=== PATIENT | female | born 1950 | race African-American/Black ===

== ENCOUNTER 2017-06-03 10:38 | Outpatient (CLI) | payer MEDICARE, BC | END 2017-06-03 10:39 | disposition home or self-care (01) | LOC: BICRAD 10:38 | PROVIDERS: ATTEND Internal Medicine | DX: R05 Cough (principal) | CPT/HCPCS: 71046 ==

== ENCOUNTER 2017-06-28 14:51 | Inpatient (IN) | payer MEDICARE, BC ==
[2017-06-28] MEDS ORDERED: Dexamethasone 4 mg/ml Vial ONE (15:33)
--- NOTE | 2017-06-28 15:55 | RAD ---
CHEST PA AND LATERAL: 06/28/17 HISTORY: 66-year-old female with history of cough and fever. COMPARISON: 11/08/15 There is prominent rotation to the left. Heart size is within normal limits. No confluent pneumonia, overt edema, or pleural effusion. IMPRESSION: Rotation to the left. Mild stranding in the upper lung zones, stable. thoracic spine disc osteophytos is, stable. No confluent pneumonia, overt edema or pleural effusion. POS: [facility]
[2017-06-28 17:31] LABS: Actual Bicarbonate (HCO3a) 29.6 mEq/L (22-26); Base Excess (BEa) 4.8 mEq/L (0 (+/-) 2.5); CO2 Tension 44.1 mmHg (35.0-45.0); Hemoglobin (Hb) 12.5 g/dL (12.0-16.0); O2 Tension (PaO2) 63.6 mmHg (80.0-100.0); pH, Arterial 7.44 (7.35-7.45)
[2017-06-28 17:32] LABS: ALV-art Gradient 80.915 (0-20); Analyzer IN Cardio ER; Calcium, Ionized 1.2 mmol/L (1.12-1.30); Puncture Site RRA
[2017-06-28 17:56] LABS: #Lymphocytes 0.5 thou/uL (1.20-3.40); #Monocytes 0.2 thou/uL (0.11-0.59); #Neutrophils 2.8 thou/uL (1.40-6.50); %Basophils 0.1 % (0.0-1.0); %Eosinophils 0.3 % (0.0-10.0); %Lymphocytes 14.7 % (21.0-51.0); %Monocytes 6.5 % (0.0-10.0); %Neutrophils 78.4 % (42.0-75.0); Hemoglobin 12.8 g/dL (12.0-16.0); Mean Corpuscular HGB CONC 32.2 g/dL (32.0-36.0); Mean Corpuscular Hemoglobin 30.9 pg (27.0-31.0); Mean Corpuscular Volume 95.8 fl (81.0-99.0); Mean Platelet Volume 7.8 fL (7.4-10.4); Platelet Count 184 thou/uL (130-400); RBC Distribution Width 13.1 % (11.5-14.5); Red Blood Cell (RBC) Count 4.16 mill/uL (4.20-5.40); White Blood Cell (WBC) Count 3.6 thou/uL (4.8-10.8)
[2017-06-28] MEDS ORDERED: Oseltamivir 75 MG CAP PO SCH (18:00)
[2017-06-28 18:16] LABS: ALT (SGPT) 16 U/L (8-55); AST (SGOT) 21 U/L (5-34); Albumin 4.3 g/dL (3.4-4.8); Alkaline Phosphatase 98 U/L (40-150); Anion Gap 12 mmol/L (10-20); BUN (Urea Nitrogen) 12 mg/dL (9.8-20.1); Bilirubin, Total 0.3 mg/dL (0.2-1.2); CK (CPK) 110 U/L (29-168); Calc. Creatinine Clearance 0 mL/min (70-130); Calcium 9.3 mg/dL (7.8-10.44); Carbon Dioxide 30 mmol/L (23-31); Chloride 103 mmol/L (98-107); Estimated GFR-MDRD 85; Glucose 141 mg/dL (80-115); Potassium 3.8 mmol/L (3.5-5.1); Protein, Total 7.3 g/dL (6.0-8.3); Sodium 141 mmol/L (136-145)
[2017-06-28 18:20] LABS: CKMB 0.4 ng/mL (0-6.6)
--- NOTE | 2017-06-28 19:52 | HP ---
DATE OF ADMISSION: 06/28/2017 CHIEF COMPLAINT: Worsening shortness of breath, fever, cough, myalgias and malaise. PRIMARY CARE PHYSICIAN: Dr. Almeida. HISTORY OF PRESENTING ILLNESS: Ms. Raya is a very pleasant 66-year-old -[place] female wit h past medical history of COPD, hypertension, and dyslipidemia who presented to the emergency room wi th above-mentioned complaints. History is mainly obtained by the patient herself. Electronic medica l records have been reviewed. Case has been discussed with the admitting ER physician. According to Ms. Raya, she has been feeling fine up until yesterday. She started to have significa nt amount of cough which was productive of whitish phlegm associated later with fever. She also has been feeling very poorly with generalized myalgias. She started to feel worse over the course of the next 24 hours and developed shortness of breath which has been worsening since morning. She present ed to the emergency room with these symptoms. 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 She denies any other symptoms at this time. She does endorse some chest discomfort along with these symptoms, but denies any palpitations, orthopnea, PND or swelling of the legs. She denies vomiting or diarrhea, but does endorse significant nausea and poor appetite. She d enies any dysuria. Upon presentation to the emergency room, she was significantly wheezing. She appears she was found to be febrile to 100.8. Her ABG showed hypoxemia with pO2 of 63. Her cardiac enzymes are in the indet erminate range. Influenza swab was done and was positive for influenza B. Her chest x-ray did not h ave any evidence to suggest infectious process. She was given multiple nebulizers along with Decadro n and Tamiflu and is now being admitted for acute hypoxic respiratory failure secondary to COPD exace rbation and influenza. PAST MEDICAL HISTORY: 1. Hypertension. 2. Dyslipidemia. 3. COPD. PAST SURGICAL HISTORY: 1. Hysterectomy. 2. Tubal ligation. 3. Cholecystectomy. PSYCHIATRIC HISTORY: No anxiety and no depression. 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 No history of drug, tobacco or alcohol a buse. FAMILY HISTORY: Significant for diabetes in her mother. Her mother and one sister have breast cance r. One of her brothers has had pancreatic cancer and father also had pancreatic cancer. ALLERGIES: No known medication allergies. CURRENT MEDICATIONS: Hydrochlorothiazide 12.5 mg daily, enalapril 20 mg daily, Crestor 5 mg daily, a spirin 81 mg daily, diltiazem 180 mg daily, and multiple eyedrops which she does not remember. REVIEW OF SYSTEMS: The following complete review of systems was negative, unless otherwise mentioned in the HPI or below: Constitutional: Weight loss or gain, ability to conduct usual activities. Skin: Rash, itching. Eyes: Double vision, pain. ENT/Mouth: Nose bleeding, neck stiffness, pain, tenderness. Cardiovascular: Palpitations, dyspnea on exertion, orthopnea. Respiratory: Shortness of breath, wheezing, cough, hemoptysis, fever or night sweats. Gastrointestinal: Poor appetite, abdominal pain, heartburn, nausea, vomiting, constipation, or diarr hea. Genitourinary: Urgency, frequency, dysuria, nocturia. Musculoskeletal: Pain, swelling. Neurologic/Psychiatric: Anxiety, depression. Allergy/Immunologic: Skin rash, bleeding tendency. It is negative except for those mentioned in the history and physical. LABORATORY DATA AND IMAGING DATA: On laboratory examination, her CBC is showing neutrophils at 78% w ith low WBCs at 3.6. ABG shows pH of 7.4, pCO2 of 44, pO2 of 63. Serum chemistries unremarkable exc ept for blood sugar of 141. Her CK-MB is normal at 0.4, normal BNP of 67. Cardiac enzymes, troponin 0.030. Chest x-ray by my review has no evidence to suggest pleural effusion, edema or infiltrate. PHYSICAL EXAMINATION: VITAL SIGNS: Upon presentation include blood pressure 161/72, pulse of 75, respirations 18, saturati ng 97% on room air, temperature 100.8. GENERAL: She appears very uncomfortable, tired and weak looking, and coughing. She is otherwise vero ke, alert, oriented x3. HEENT: Mucous membrane is slightly dry. No oropharyngeal exudate or erythema. Head is normocephali c, atraumatic. Pupils are equal, reactive to light and accommodation. Extraocular movements are int act. NECK: Supple without any lymphadenopathy, JVD or bruit. CHEST: Evaluation showed diffuse wheezing bilaterally without any crackles. Rate and rhythm is regu lar without any murmurs, rubs or gallops. ABDOMEN: Obese, soft, nontender, nondistended with positive bowel sounds. EXTREMITIES: Free of any cyanosis, clubbing, or edema. NEUROLOGIC: Examination is nonfocal. SKIN: Free of any rashes or bruises. PSYCHIATRIC: Normal affect. IMPRESSION AND PLAN: 1. Acute hypoxic respiratory failure secondary to chronic obstructive pulmonary disease exacerbation along with influenza. The patient will be admitted to the medical floor and we will start her on ox ygen supplementation along with nebulizers scheduled as well as needed basis. We will also add inhal ed steroids as well as continue high dose steroids for now. Add empiric antibiotics for chronic obst ructive pulmonary disease exacerbation especially in the light of influenza. Continue with Tamiflu t wice a day for now. We will also request consultation with Pulmonary Medicine in the morning. She f ollows up at [facility]. We will continue symptomatic and supportive care as mesfin vidal. 2. Hypertension. We will restart her home medications. Her blood pressure is slightly on the highe r side at this time. We will add p.r.n. antihypertensives as well. 3. History of dyslipidemia. We will restart her Crestor. She will follow up with her primary care physician as an outpatient. 4. Indeterminate troponin. This is likely secondary to demand ischemia from influenzae and acute hy poxia due to chronic obstructive pulmonary disease exacerbation. The patient does not endorse any hi story of cardiac disease. We will continue her aspirin, statin as well as RICK inhibitor along with r est of her home medications at this time. We will continue to trend serial cardiac enzymes. 5. Influenza B. The patient has received first dose of Tamiflu in the emergency room, and we will c ontinue twice a day for a total of 10 doses for now. Start her on gentle intravenous fluids to maint ain hydration. 6. Deep venous thrombosis and gastrointestinal prophylaxis. P.r.n. medication orders. DISPOSITION: Ms. Raya is being admitted to the hospital for acute hypoxic respiratory failure due to COPD exacerbation and influenza. Her estimated length of stay is at least 2 to 3 midnights given the severity of her presentation and hypoxia. Further management will depend upon her clinical cours e.
[2017-06-28] MEDS ORDERED: Ondansetron ODT 4 MG TAB SL PRN (21:04)
[2017-06-28] MEDS ORDERED: Acetaminophen 325 MG TAB PO PRN (21:04)
[2017-06-28] MEDS ORDERED: Ondansetron HCl/PF 4 MG/2 ML Vial IVP PRN ×2 (21:04→21:07)
[2017-06-28] MEDS ORDERED: Diabetic Tussin 200 MG/10 ML UDCUP PO PRN (21:07)
[2017-06-28] MEDS ORDERED: cloNIDine 0.1 MG TAB PO PRN (21:07)
[2017-06-28] MEDS ORDERED: Benzonatate 100 MG CAP PO PRN (21:07)
[2017-06-28] MEDS ORDERED: Loratadine 10 MG TAB PO PRN (21:07)
[2017-06-28] MEDS ORDERED: Calcium Carbonate 500 MG ChewTAB PO PRN (21:07)
[2017-06-28] MEDS ORDERED: Nitroglycerin 0.4 MG TAB (25 Tab Bottle) SL PRN (21:07)
[2017-06-28] MEDS ORDERED: hydrALAZINE 20 MG/ML VIAL SLOW IVP PRN (21:07)
[2017-06-28] MEDS ORDERED: traMADol HCl 50 MG TAB PO PRN (21:07)
[2017-06-28] MEDS ORDERED: Mag-Al 1200 mg/1200 mg/30 ML UDCUP PO PRN (21:07)
[2017-06-28] MEDS ORDERED: Sodium Chloride 0.9% 1,000 ML IV SCH (21:15)
[2017-06-28 21:27] LABS: Troponin I 0.042 ng/mL (< 0.028)
[2017-06-28] MEDS ORDERED: guaiFENesin ER 600 MG TAB PO SCH (21:30)
[2017-06-28] MEDS ORDERED: Amoxicillin/Potassium Clav 875 MG TAB PO SCH (21:30)
[2017-06-28] MEDS ORDERED: Famotidine 20 MG TAB PO SCH (21:45)
[2017-06-29] MEDS: Sodium Chloride 0.9% 1,000 ML IV SCH ×2 (00:50→18:01)
[2017-06-29] MEDS: Rosuvastatin 5 MG TAB PO SCH ×2 (00:52→20:38)
[2017-06-29 03:18] VITALS: BMI 30.7
[2017-06-29 06:11] LABS: #Lymphocytes 0.5 thou/uL (1.20-3.40); #Monocytes 0.1 thou/uL (0.11-0.59); #Neutrophils 2.3 thou/uL (1.40-6.50); %Eosinophils 0.2 % (0.0-10.0); %Lymphocytes 17.3 % (21.0-51.0); %Monocytes 2.6 % (0.0-10.0); %Neutrophils 79.9 % (42.0-75.0); Hemoglobin 12.1 g/dL (12.0-16.0); Mean Corpuscular HGB CONC 31.6 g/dL (32.0-36.0); Mean Corpuscular Hemoglobin 30.3 pg (27.0-31.0); Mean Platelet Volume 7.8 fL (7.4-10.4); Platelet Count 179 thou/uL (130-400); RBC Distribution Width 13.1 % (11.5-14.5); Red Blood Cell (RBC) Count 3.99 mill/uL (4.20-5.40); White Blood Cell (WBC) Count 2.9 thou/uL (4.8-10.8)
[2017-06-29 06:26] LABS: Anion Gap 9 mmol/L (10-20); BUN (Urea Nitrogen) 14 mg/dL (9.8-20.1); Calc. Creatinine Clearance 98 mL/min (70-130); Calcium 9.4 mg/dL (7.8-10.44); Carbon Dioxide 30 mmol/L (23-31); Chloride 105 mmol/L (98-107); Estimated GFR-MDRD Greater than 90; Glucose 192 mg/dL (80-115); Potassium 3.8 mmol/L (3.5-5.1); Sodium 140 mmol/L (136-145)
[2017-06-29] MEDS: Mometasone/Formoterol 120 PUFF INHALER INH SCH ×2 (06:49→18:57)
[2017-06-29] MEDS: Enoxaparin Sodium 40 MG/0.4 ML SYRINGE SC SCH (09:01)
[2017-06-29] MEDS: guaiFENesin ER 600 MG TAB PO SCH ×2 (09:03→20:37)
[2017-06-29] MEDS: Amoxicillin/Potassium Clav 875 MG TAB PO SCH ×2 (09:03→20:37)
[2017-06-29] MEDS: Famotidine 20 MG TAB PO SCH ×3 (09:03→20:38)
[2017-06-29] MEDS: Hydrochlorothiazide 25 MG TAB PO SCH (09:06)
[2017-06-29] MEDS: Oseltamivir 75 MG CAP PO SCH ×2 (10:08→22:01)
[2017-06-29] MEDS: Acetaminophen 325 MG TAB PO PRN ×2 (12:11→18:06)
--- NOTE | 2017-06-29 14:51 | PDOC.PN ---
- Subjective Encounter Start Date: 06/29/17 Encounter Start Time: 14:50 Subjective: feels poorly. c/o persistant cough and TINEO - Objective MAR Reviewed: Yes Vital Signs & Weight: Vital Signs (12 hours) Temp Pulse Resp BP BP Pulse Ox 06/29/17 13:47 90 14 06/29/17 12:11 144/83 H 06/29/17 11:40 98.6 F 66 15 135/67 94 L 06/29/17 09:03 144/83 H 06/29/17 08:30 98.9 F 65 14 93 L 06/29/17 08:21 98.9 F 65 14 144/83 H 93 L 06/29/17 06:50 80 14 06/29/17 04:00 98.6 F 62 16 142/71 H 91 L I&O: 06/28/17 06/29/17 06/30/17 06:59 06:59 06:59 Intake Total 1100 Balance 1100 Result Diagrams: 06/29/17 05:47 06/29/17 05:47 Additional Labs: Laboratory Tests 06/28/17 06/28/17 17:47 20:50 Troponin I 0.030 H 0.042 H Radiology Reviewed by me: Yes Phys Exam - Physical Examination Constitutional: NAD coughing HEENT: PERRLA, moist MMs, sclera anicteric, oral pharynx no lesions Neck: no JVD Respiratory: no rales, no rhonchi, wheezing present Cardiovascular: RRR, no significant murmur Gastrointestinal: soft, non-tender, no distention, positive bowel sounds Musculoskeletal: no edema, pulses present Neurological: non-focal, normal sensation, moves all 4 limbs Psychiatric: normal affect, A&O x 3 Skin: no rash Dx/Plan (1) Acute hypoxemic respiratory failure Code(s): J96.01 - ACUTE RESPIRATORY FAILURE WITH HYPOXIA Status: Resolved (2) Influenza Code(s): J11.1 - FLU DUE TO UNIDENTIFIED INFLUENZA VIRUS W OTH RESP MANIFEST Status: Acute (3) Acute bronchitis with COPD Code(s): J44.0 - CHRONIC OBSTRUCTIVE PULMON DISEASE W ACUTE LOWER RESP INFCT; J20.9 - ACUTE BRONCHITIS, UNSPECIFIED Status: Acute (4) HTN (hypertension) Code(s): I10 - ESSENTIAL (PRIMARY) HYPERTENSION Status: Acute (5) HLD (hyperlipidemia) Code(s): E78.5 - HYPERLIPIDEMIA, UNSPECIFIED Status: Acute - Plan continue antibiotics, PT/OT, respiratory therapy, incentive spirometry, out of bed/ambulate, DVT proph w/SCDs cont empiric Po ABx. cont tamiflu,nebs,steroids. -: clinically better. -: cont home meds as below. -: am labs.PCCM to see * . Review of Systems - Review of Systems Constitutional: weakness, malaise. negative: fever, chills, sweats, other Respiratory: Cough, SOB with Excertion, Sputum, Wheezing. negative: Dry, Shortness of Breath, Hemoptysis, Pleuritic Pain Cardiovascular: negative: chest pain, palpitations, orthopnea, paroxysmal nocturnal dyspnea, edema, light headedness, other Gastrointestinal: Nausea Genitourinary: negative: Dysuria, Frequency, Incontinence, Hematuria, Retention , Other Musculoskeletal: negative: Neck Pain, Shoulder Pain, Arm Pain, Back Pain, Hand Pain, Leg Pain, Foot Pain, Other Neurological: negative: Weakness, Numbness, Incoordination, Change in Speech, Confusion, Seizures, Other - Medications/Allergies Allergies/Adverse Reactions: Allergies Allergy/AdvReac Type Severity Reaction Status Date / Time No Known Allergies Allergy Verified 02/14/13 16:35 Medications: Current Medications Acetaminophen (Tylenol) 650 mg PO Q4H PRN PRN Reason: Headache/Fever or Pain Last Admin: 06/29/17 12:11 Dose: 650 mg Al Hydroxide/Mg Hydroxide (Maalox) 30 ml PO Q6H PRN PRN Reason: Heartburn or Indigestion Albuterol/Ipratropium (Duoneb) 3 ml NEB Q4H PRN PRN Reason: SOB &/or Wheezing Albuterol/Ipratropium (Duoneb) 3 ml NEB [id number] [facility] Last Admin: 06/29/17 13:47 Dose: 3 ml Amoxicillin/Clavulanate Potassium (Augmentin) 875 mg PO BID [facility] Last Admin: 06/29/17 09:03 Dose: 875 mg Aspirin (Aspirin Chewable) 81 mg PO DAILY [facility] Last Admin: 06/29/17 09:03 Dose: 81 mg Benzonatate (Tessalon) 100 mg PO Q4H PRN PRN Reason: Cough Bisacodyl (Dulcolax) 10 mg PO DAILYPRN PRN PRN Reason: Constipation Calcium Carbonate (Tums) 1,000 mg PO Q4H PRN PRN Reason: Heartburn or Indigestion Clonidine (Catapres) 0.1 mg PO Q4H PRN PRN Reason: Systolic BP > 160 Diltiazem HCl (Cardizem Cd) 180 mg PO DAILY [facility] Last Admin: 06/29/17 09:03 Dose: 180 mg Enalapril Maleate (Vasotec) 40 mg PO DAILY [facility] Enoxaparin Sodium (Lovenox) 40 mg SC 0900 [facility] Last Admin: 06/29/17 09:01 Dose: 40 mg Famotidine (Pepcid) 20 mg PO BID [facility] Last Admin: 06/29/17 09:13 Dose: 20 mg Guaifenesin (Robitussin Sf) 200 mg PO Q4H PRN PRN Reason: Cough Guaifenesin (Mucinex) 1,200 mg PO Q12HR [facility] Last Admin: 06/29/17 09:03 Dose: 1,200 mg Hydralazine HCl (Apresoline) 10 mg SLOW IVP Q4H PRN PRN Reason: Systolic BP > 180 Hydrochlorothiazide (Hydrochlorothiazide) 12.5 mg PO DAILY [facility] Last Admin: 06/29/17 09:06 Dose: 12.5 mg Sodium Chloride (Normal Saline 0.9%) 1,000 mls @ 50 mls/hr IV .Q20H [facility] Last Admin: 06/29/17 00:50 Dose: 1,000 mls Loratadine (Claritin) 10 mg PO DAILYPRN PRN PRN Reason: Sinus Symptoms Methylprednisolone Sodium Succinate (Solu-Medrol) 40 mg IVP Q6HR [facility] Last Admin: 06/29/17 12:12 Dose: 40 mg Mometasone Furoate/Formoterol Fumar (Dulera 100 Mcg/5 Mcg Inhaler) 1 puff INH BID-RT [facility] Last Admin: 06/29/17 06:49 Dose: Not Given Nitroglycerin (Nitrostat) 0.4 mg SL Q5MIN PRN PRN Reason: Chest Pain Ondansetron HCl (Zofran) 4 mg IVP Q6H PRN PRN Reason: Nausea/Vomiting Oseltamivir Phosphate (Tamiflu) 75 mg PO BID [facility] Stop: 07/03/17 21:01 Last Admin: 06/29/17 10:08 Dose: 75 mg Rosuvastatin Calcium (Crestor) 5 mg PO [facility] Last Admin: 06/29/17 00:52 Dose: Not Given Senna (Senokot) 2 tab PO HSPRN PRN PRN Reason: Constipation Tramadol HCl (Ultram) 50 mg PO Q4H PRN PRN Reason: Moderate Pain (4-6)
--- NOTE | 2017-06-29 22:47 | CON ---
DATE OF CONSULTATION: 06/29/2017 SERVICE: Pulmonary Medicine. REASON FOR CONSULTATION: COPD acute exacerbation. HISTORY OF PRESENT ILLNESS: The patient is a 66-year-old -[place] female with past medical history significant for COPD. She had childhood asthma. She is typically fairly well controlled with Dulera. She takes 2 puffs twice a day. With this, she needs rescue medication roughly once a week. In this setting, she was in her usual state of health when she came to the hospital with a 2-day history of increasing cough, congestion, shortness of breath, and wheezing. Ultimately, she was identified as having influenza. This was the reason for COPD exacerbation. So far, she does not feel much improved. She denies any current nausea, vomiting or diarrhea. She has a little bit of heaviness in the chest and feels like she cannot get a full breath. She follows with Dr. Sánchez on an annual basis and she has never had a significant heart issues that she is aware of. PAST MEDICAL HISTORY: 1. COPD, following Eliud and Sunday. 2. Hypertension. 3. Dyslipidemia. PAST SURGICAL HISTORY: 1. Hysterectomy. 2. Tubal ligation. 3. Cholecystectomy. 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 She has no exposure to chemicals, dust, asbestos, or tuberculosis. She denies any tobacco, alcohol or illicit drug use. FAMILY HISTORY: Noncontributory. ALLERGIES: No known drug allergies. MEDICATIONS: List of her inpatient medications were reviewed. Couple of small updates were made. REVIEW OF SYSTEMS: General, head, ears, eyes, nose, throat, cardiovascular, respiratory, GI, , musculoskeletal, neurologic and skin is negative except as mentioned in the HPI. PHYSICAL EXAMINATION: VITAL SIGNS: Afebrile, pulse 54, blood pressure 170/59, respirations 16, saturation 91% on room air. GENERAL: Patient is awake, alert, in no apparent distress. LUNGS: Decreased air entry with prolonged expiratory phase and polyphonic wheezing present. No crackles or rhonchi appreciated. HEART: Normal rate, regular. ABDOMEN: Soft, nontender, nondistended, bowel sounds positive. MUSCULOSKELETAL: No cyanosis or clubbing. There is trace pitting in the bilateral lower extremities. NEUROLOGIC: Grossly nonfocal. LABORATORY DATA: WBC 2.9, hemoglobin 12.1. Platelets 179,000. PH 7.44, pCO2 of 44, pO2 of 63 on room air at that time. Basic metabolic profile is unremarkable. Cardiac enzymes are slightly up trending to 0.042. Liver function studies are unremarkable. BNP is normal. Influenza A is negative, but influenza B antigen is positive. ASSESSMENT: 1. Chronic obstructive pulmonary disease with acute exacerbation. 2. Influenza B. 3. Leukopenia. PLAN: We will continue antibiotics, nebulized medications and steroids. Tamiflu will be limited to 5-day course. We will continue supportive care and once the patient is ready for discharge from the hospital, this can be arranged. We will repeat laboratories tomorrow morning. If the leukopenia persists, workup of that may be indicated. Pulmonary Critical Care will continue to follow. 70 minutes have been devoted to this patient in various activities. I personally reviewed all imaging studies and laboratory data noted within this document. For at least half of this time, I was interacting with the patient at the bedside or coordinating care with the care team. For the remainder of the time I was immediately available to the patient in the hospital unit. SHAHRIAR
[2017-06-30 06:11] LABS: Anion Gap 13 mmol/L (10-20); BUN (Urea Nitrogen) 16 mg/dL (9.8-20.1); Calc. Creatinine Clearance 108 mL/min (70-130); Carbon Dioxide 26 mmol/L (23-31); Chloride 106 mmol/L (98-107); Estimated GFR-MDRD Greater than 90; Glucose 146 mg/dL (80-115); Potassium 3.9 mmol/L (3.5-5.1); Sodium 141 mmol/L (136-145)
[2017-06-30] MEDS: Mometasone/Formoterol 120 PUFF INHALER INH SCH ×2 (07:26→19:34)
[2017-06-30] MEDS: Hydrochlorothiazide 25 MG TAB PO SCH (09:40)
[2017-06-30] MEDS: Oseltamivir 75 MG CAP PO SCH ×2 (09:40→22:46)
[2017-06-30] MEDS: Famotidine 20 MG TAB PO SCH (09:42)
[2017-06-30] MEDS: guaiFENesin ER 600 MG TAB PO SCH ×2 (09:42→22:46)
[2017-06-30] MEDS: Amoxicillin/Potassium Clav 875 MG TAB PO SCH ×2 (09:42→22:47)
[2017-06-30 09:55] LABS: #Lymphocytes 0.8 thou/uL (1.20-3.40); #Monocytes 0.5 thou/uL (0.11-0.59); #Neutrophils 7.6 thou/uL (1.40-6.50); %Eosinophils 0.2 % (0.0-10.0); %Lymphocytes 8.7 % (21.0-51.0); %Monocytes 6.1 % (0.0-10.0); Hemoglobin 12.6 g/dL (12.0-16.0); Mean Corpuscular HGB CONC 30.8 g/dL (32.0-36.0); Mean Corpuscular Volume 97.5 fl (81.0-99.0); Mean Platelet Volume 8.1 fL (7.4-10.4); Platelet Count 184 thou/uL (130-400); RBC Distribution Width 13.4 % (11.5-14.5); Red Blood Cell (RBC) Count 4.21 mill/uL (4.20-5.40)
--- NOTE | 2017-06-30 11:14 | PRG ---
DATE OF SERVICE: 06/30/2017 SERVICE: Pulmonary Medicine. INTERVAL HISTORY: The patient is doing really well from a respiratory standpoint. She remains on room air. That being said, whenever she coughs or take a deep breath, she has some chest discomfort associated with that. She is able to get up and walk around the room without significant difficulty. She is eating okay. That being said, she does not feel much improved. She continues to have myalgias, and a little bit of headache. She is yet to turn the corner, but is looking forward to feeling better as soon as possible. PHYSICAL EXAMINATION: VITAL SIGNS: Afebrile, pulse 54, blood pressure 160/80, respirations 16, and saturation 97% on room air. GENERAL: Patient is awake, alert, in no apparent distress. LUNGS: Decreased air entry with prolonged expiratory phase and polyphonic wheezing. No crackles are appreciated. HEART: Normal rate, regular. ABDOMEN: Soft, nontender, nondistended. Bowel sounds are positive. MUSCULOSKELETAL: No cyanosis or clubbing. There is no significant edema in the bilateral lower extremities. NEUROLOGIC: Grossly nonfocal. LABORATORY DATA: WBC 9.0, hemoglobin 12.6, platelets 184,000. PH 7.44, pCO2 of 44. PO2 of 63. Basic metabolic profile is completely unremarkable. Influenza B is positive. ASSESSMENT: 1. Chronic obstructive pulmonary disease with acute exacerbation. 2. Influenza B. 3. Leukopenia, improving. 4. Obstructive sleep apnea, suspected. PLAN: The patient will be given a lab holiday. We will continue nebulized medications, steroids, and antibiotics. Tamiflu will also be continued for a total duration of 5 days. The patient is not in a position where she is ready to get out of the hospital yet. We will continue our supportive care and hopefully in another 24-48 hours, she will open up and start to feel better. Once that occurs, she can be considered for transition out of the hospital. I will deescalate her steroids to p.o. prednisone once daily. [place]YD
[2017-06-30] MEDS: Enoxaparin Sodium 40 MG/0.4 ML SYRINGE SC SCH (11:19)
--- NOTE | 2017-06-30 14:45 | PDOC.PN ---
- Subjective Encounter Start Date: 06/30/17 Encounter Start Time: 14:44 Subjective: feels only marginally better.c/o maialise,cough & TINEO - Objective MAR Reviewed: Yes Vital Signs & Weight: Vital Signs (12 hours) Temp Pulse Resp BP BP Pulse Ox 06/30/17 13:35 89 14 95 06/30/17 13:24 98.5 F 60 16 177/81 H 95 06/30/17 09:41 166/80 H 06/30/17 09:06 98.5 F 54 L 16 160/80 H 97 06/30/17 08:00 98.5 F 54 L 16 95 06/30/17 07:24 89 14 95 06/30/17 03:51 98.4 F 51 L 16 161/77 H 95 I&O: 06/29/17 06/30/17 07/01/17 06:59 06:59 06:59 Intake Total 1100 2550 Balance 1100 2550 Result Diagrams: 06/30/17 04:33 06/30/17 04:37 Phys Exam - Physical Examination Constitutional: NAD HEENT: PERRLA, moist MMs, sclera anicteric, oral pharynx no lesions Neck: no nodes, no JVD, supple, full ROM Respiratory: no rales, no rhonchi, wheezing present Cardiovascular: RRR, no significant murmur Gastrointestinal: soft, non-tender, no distention, positive bowel sounds Musculoskeletal: no edema, pulses present Neurological: non-focal, normal sensation, moves all 4 limbs Psychiatric: normal affect, A&O x 3 Skin: no rash Dx/Plan (1) Influenza Code(s): J11.1 - FLU DUE TO UNIDENTIFIED INFLUENZA VIRUS W OTH RESP MANIFEST Status: Acute (2) Acute bronchitis with COPD Code(s): J44.0 - CHRONIC OBSTRUCTIVE PULMON DISEASE W ACUTE LOWER RESP INFCT; J20.9 - ACUTE BRONCHITIS, UNSPECIFIED Status: Acute (3) HTN (hypertension) Code(s): I10 - ESSENTIAL (PRIMARY) HYPERTENSION Status: Acute (4) HLD (hyperlipidemia) Code(s): E78.5 - HYPERLIPIDEMIA, UNSPECIFIED Status: Acute (5) Acute hypoxemic respiratory failure Code(s): J96.01 - ACUTE RESPIRATORY FAILURE WITH HYPOXIA Status: Resolved - Plan continue antibiotics, PT/OT, respiratory therapy, incentive spirometry, out of bed/ambulate, DVT proph w/SCDs cont supportive care.empiric ABx w augmentin,Tamiflu,nebs,steroids -: PCCM following -: likely will feell better soon for DC home. -: not ready for discharge today. -: HR lower side. monitor.on CCB.BP uncontrolled * . Review of Systems - Review of Systems Constitutional: weakness, malaise Respiratory: Cough, Dry, SOB with Excertion, Wheezing. negative: Shortness of Breath, Hemoptysis, Pleuritic Pain, Sputum Cardiovascular: negative: chest pain, palpitations, orthopnea, paroxysmal nocturnal dyspnea, edema, light headedness, other Gastrointestinal: negative: Nausea, Vomiting, Abdominal Pain, Diarrhea, Constipation, Melena, Hematochezia, Other Genitourinary: negative: Dysuria, Frequency, Incontinence, Hematuria, Retention , Other Musculoskeletal: negative: Neck Pain, Shoulder Pain, Arm Pain, Back Pain, Hand Pain, Leg Pain, Foot Pain, Other Neurological: negative: Weakness, Numbness, Incoordination, Change in Speech, Confusion, Seizures, Other - Medications/Allergies Allergies/Adverse Reactions: Allergies Allergy/AdvReac Type Severity Reaction Status Date / Time No Known Allergies Allergy Verified 02/14/13 16:35 Medications: Current Medications Acetaminophen (Tylenol) 650 mg PO Q4H PRN PRN Reason: Headache/Fever or Pain Last Admin: 06/29/17 18:06 Dose: 650 mg Al Hydroxide/Mg Hydroxide (Maalox) 30 ml PO Q6H PRN PRN Reason: Heartburn or Indigestion Albuterol/Ipratropium (Duoneb) 3 ml NEB Q4H PRN PRN Reason: SOB &/or Wheezing Albuterol/Ipratropium (Duoneb) 3 ml NEB [id number] [facility] Last Admin: 06/30/17 13:35 Dose: 3 ml Amoxicillin/Clavulanate Potassium (Augmentin) 875 mg PO BID [facility] Last Admin: 06/30/17 09:42 Dose: 875 mg Aspirin (Aspirin Chewable) 81 mg PO DAILY [facility] Last Admin: 06/30/17 09:42 Dose: 81 mg Bisacodyl (Dulcolax) 10 mg PO DAILYPRN PRN PRN Reason: Constipation Brimonidine Tartrate (Alphagan 0.2% Ophth Soln) 1 drop EA EYE Q8HR [facility] Calcium Carbonate (Tums) 1,000 mg PO Q4H PRN PRN Reason: Heartburn or Indigestion Clonidine (Catapres) 0.1 mg PO Q4H PRN PRN Reason: Systolic BP > 160 Diltiazem HCl (Cardizem Cd) 180 mg PO DAILY [facility] Last Admin: 06/30/17 09:42 Dose: 180 mg Enalapril Maleate (Vasotec) 40 mg PO DAILY [facility] Last Admin: 06/30/17 09:41 Dose: 40 mg Enoxaparin Sodium (Lovenox) 40 mg SC 0900 [facility] Last Admin: 06/30/17 11:19 Dose: 40 mg Guaifenesin (Robitussin Sf) 200 mg PO Q4H PRN PRN Reason: Cough Guaifenesin (Mucinex) 1,200 mg PO Q12HR [facility] Last Admin: 06/30/17 09:42 Dose: 1,200 mg Hydralazine HCl (Apresoline) 10 mg SLOW IVP Q4H PRN PRN Reason: Systolic BP > 180 Hydrochlorothiazide (Hydrochlorothiazide) 12.5 mg PO DAILY [facility] Last Admin: 06/30/17 09:40 Dose: 12.5 mg Latanoprost (Xalatan 0.005% Ophth Soln) 1 drop EA EYE HS [facility] Loratadine (Claritin) 10 mg PO DAILYPRN PRN PRN Reason: Sinus Symptoms Mometasone Furoate/Formoterol Fumar (Dulera 100 Mcg/5 Mcg Inhaler) 2 puff INH BID-RT [facility] Nitroglycerin (Nitrostat) 0.4 mg SL Q5MIN PRN PRN Reason: Chest Pain Ondansetron HCl (Zofran) 4 mg IVP Q6H PRN PRN Reason: Nausea/Vomiting Oseltamivir Phosphate (Tamiflu) 75 mg PO BID [facility] Stop: 07/03/17 21:01 Last Admin: 06/30/17 09:40 Dose: 75 mg Prednisone (Prednisone) 40 mg PO QAM-WM [facility] Stop: 07/04/17 08:01 Rosuvastatin Calcium (Crestor) 5 mg PO HS [facility] Last Admin: 06/29/17 20:38 Dose: 5 mg Senna (Senokot) 2 tab PO HSPRN PRN PRN Reason: Constipation Tramadol HCl (Ultram) 50 mg PO Q4H PRN PRN Reason: Moderate Pain (4-6)
[2017-06-30] MEDS: Acetaminophen 325 MG TAB PO PRN (15:33)
[2017-06-30] MEDS: Brimonidine Tartrate 0.2% Ophth Soln 5 ml Bottle EA EYE SCH ×2 (15:34→22:48)
[2017-06-30] MEDS: Latanoprost 0.005% Ophth Soln 2.5 ml Bottle EA EYE SCH (22:47)
[2017-06-30] MEDS: Rosuvastatin 5 MG TAB PO SCH (22:47)
[2017-07-01] MEDS: Brimonidine Tartrate 0.2% Ophth Soln 5 ml Bottle EA EYE SCH ×3 (06:50→21:38)
[2017-07-01] MEDS: Mometasone/Formoterol 120 PUFF INHALER INH SCH ×2 (07:55→18:13)
[2017-07-01] MEDS: Amoxicillin/Potassium Clav 875 MG TAB PO SCH ×2 (09:20→21:38)
[2017-07-01] MEDS: guaiFENesin ER 600 MG TAB PO SCH ×2 (09:20→21:32)
[2017-07-01] MEDS: Enoxaparin Sodium 40 MG/0.4 ML SYRINGE SC SCH (09:20)
[2017-07-01] MEDS: predniSONE 20 MG TAB PO SCH (09:21)
[2017-07-01] MEDS: Oseltamivir 75 MG CAP PO SCH ×2 (09:22→21:37)
[2017-07-01] MEDS: Bisacodyl 5 MG TAB PO PRN (09:25)
[2017-07-01] MEDS: Hydrochlorothiazide 25 MG TAB PO SCH (09:35)
[2017-07-01] MEDS: Acetaminophen 325 MG TAB PO PRN ×3 (12:32→22:39)
--- NOTE | 2017-07-01 14:20 | PDOC.PN ---
- Subjective Encounter Start Date: 07/01/17 Encounter Start Time: 14:18 Subjective: c/o dizziness, malaise,cough & TINEO - Objective MAR Reviewed: Yes Vital Signs & Weight: Vital Signs (12 hours) Temp Pulse Resp BP BP Pulse Ox 07/01/17 12:37 98.4 F 58 L 15 146/70 H 97 07/01/17 09:21 198/79 H 07/01/17 09:18 48 L 196/79 H 07/01/17 08:06 98.7 F 48 L 16 136/75 95 07/01/17 07:53 62 14 96 07/01/17 04:00 98.3 F 45 L 16 163/81 H 95 I&O: 06/30/17 07/01/17 07/02/17 06:59 06:59 06:59 Intake Total 2550 760 Balance 2550 760 Result Diagrams: 06/30/17 04:33 06/30/17 04:37 Phys Exam - Physical Examination Constitutional: NAD coughing,tired looking HEENT: PERRLA, moist MMs, sclera anicteric, oral pharynx no lesions Neck: no nodes, no JVD, supple, full ROM Respiratory: no rales, no rhonchi, wheezing present Cardiovascular: RRR, no significant murmur Gastrointestinal: soft, non-tender, no distention, positive bowel sounds Musculoskeletal: no edema, pulses present Neurological: non-focal, normal sensation, moves all 4 limbs Psychiatric: normal affect, A&O x 3 Skin: no rash Dx/Plan (1) Sinus bradycardia Code(s): R00.1 - BRADYCARDIA, UNSPECIFIED Status: Acute Comment: Likley due to CCB (2) Influenza Code(s): J11.1 - FLU DUE TO UNIDENTIFIED INFLUENZA VIRUS W OTH RESP MANIFEST Status: Acute (3) Acute bronchitis with COPD Code(s): J44.0 - CHRONIC OBSTRUCTIVE PULMON DISEASE W ACUTE LOWER RESP INFCT; J20.9 - ACUTE BRONCHITIS, UNSPECIFIED Status: Acute (4) HTN (hypertension) Code(s): I10 - ESSENTIAL (PRIMARY) HYPERTENSION Status: Acute (5) HLD (hyperlipidemia) Code(s): E78.5 - HYPERLIPIDEMIA, UNSPECIFIED Status: Acute (6) Acute hypoxemic respiratory failure Code(s): J96.01 - ACUTE RESPIRATORY FAILURE WITH HYPOXIA Status: Resolved - Plan DVT proph w/SCDs DC Diltiazem.monitor HR.ECHO. -: add Hydralazine for BP control.Increase HCTZ dose. cont lisinopril.BP high -: cont nebs, empiric ABx,Po steroids.PCCM following -: not ready for DC today d/t low HR & high BP -: am labs and reassess * . Review of Systems - Review of Systems Constitutional: weakness, malaise. negative: fever, chills, sweats, other ENT: negative: Ear Pain, Ear Discharge, Nose Pain, Nose Discharge, Nose Congestion, Mouth Pain, Mouth Swelling, Throat Pain, Throat Swelling, Other Respiratory: Cough, SOB with Excertion Cardiovascular: negative: chest pain, palpitations, orthopnea, paroxysmal nocturnal dyspnea, edema, light headedness, other Gastrointestinal: negative: Nausea, Vomiting, Abdominal Pain, Diarrhea, Constipation, Melena, Hematochezia, Other Genitourinary: negative: Dysuria, Frequency, Incontinence, Hematuria, Retention , Other Musculoskeletal: negative: Neck Pain, Shoulder Pain, Arm Pain, Back Pain, Hand Pain, Leg Pain, Foot Pain, Other Neurological: negative: Weakness, Numbness, Incoordination, Change in Speech, Confusion, Seizures, Other - Medications/Allergies Allergies/Adverse Reactions: Allergies Allergy/AdvReac Type Severity Reaction Status Date / Time No Known Allergies Allergy Verified 02/14/13 16:35 Medications: Current Medications Acetaminophen (Tylenol) 650 mg PO Q4H PRN PRN Reason: Headache/Fever or Pain Last Admin: 07/01/17 12:32 Dose: 650 mg Al Hydroxide/Mg Hydroxide (Maalox) 30 ml PO Q6H PRN PRN Reason: Heartburn or Indigestion Albuterol/Ipratropium (Duoneb) 3 ml NEB Q4H PRN PRN Reason: SOB &/or Wheezing Albuterol/Ipratropium (Duoneb) 3 ml NEB [id number] [facility] Last Admin: 07/01/17 11:59 Dose: 3 ml Amoxicillin/Clavulanate Potassium (Augmentin) 875 mg PO BID [facility] Last Admin: 07/01/17 09:20 Dose: 875 mg Aspirin (Aspirin Chewable) 81 mg PO DAILY [facility] Last Admin: 07/01/17 09:21 Dose: 81 mg Bisacodyl (Dulcolax) 10 mg PO DAILYPRN PRN PRN Reason: Constipation Last Admin: 07/01/17 09:25 Dose: 10 mg Brimonidine Tartrate (Alphagan 0.2% Oph Soln) 1 drop EA EYE Q8HR [facility] Last Admin: 07/01/17 06:50 Dose: Not Given Calcium Carbonate (Tums) 1,000 mg PO Q4H PRN PRN Reason: Heartburn or Indigestion Enalapril Maleate (Vasotec) 40 mg PO DAILY [facility] Last Admin: 07/01/17 09:21 Dose: 40 mg Enoxaparin Sodium (Lovenox) 40 mg SC 0900 [facility] Last Admin: 07/01/17 09:20 Dose: 40 mg Guaifenesin (Robitussin Sf) 200 mg PO Q4H PRN PRN Reason: Cough Guaifenesin (Mucinex) 1,200 mg PO Q12HR [facility] Last Admin: 07/01/17 09:20 Dose: 1,200 mg Hydralazine HCl (Apresoline) 10 mg SLOW IVP Q4H PRN PRN Reason: Systolic BP > 180 Last Admin: 07/01/17 09:18 Dose: 10 mg Hydralazine HCl (Apresoline) 25 mg PO BID [facility] Hydrochlorothiazide (Hydrochlorothiazide) 25 mg PO DAILY [facility] Latanoprost (Xalatan 0.005% Oph Soln) 1 drop EA EYE HS [facility] Last Admin: 06/30/17 22:47 Dose: 1 drop Loratadine (Claritin) 10 mg PO DAILYPRN PRN PRN Reason: Sinus Symptoms Last Admin: 07/01/17 12:32 Dose: 10 mg Mometasone Furoate/Formoterol Fumar (Dulera 100 Mcg/5 Mcg Inhaler) 2 puff INH BID-RT [facility] Last Admin: 07/01/17 07:55 Dose: 2 puff Nitroglycerin (Nitrostat) 0.4 mg SL Q5MIN PRN PRN Reason: Chest Pain Ondansetron HCl (Zofran) 4 mg IVP Q6H PRN PRN Reason: Nausea/Vomiting Oseltamivir Phosphate (Tamiflu) 75 mg PO BID [facility] Stop: 07/03/17 21:01 Last Admin: 07/01/17 09:22 Dose: 75 mg Prednisone (Prednisone) 40 mg PO QAM-WM [facility] Stop: 07/04/17 08:01 Last Admin: 07/01/17 09:21 Dose: 40 mg Rosuvastatin Calcium (Crestor) 5 mg PO [facility] Last Admin: 06/30/17 22:47 Dose: 5 mg Senna (Senokot) 2 tab PO HSPRN PRN PRN Reason: Constipation Tramadol HCl (Ultram) 50 mg PO Q4H PRN PRN Reason: Moderate Pain (4-6)
[2017-07-01] MEDS: Fluticasone Propionate Nasal Spray 16 gm Bottle NASAL SCH (17:28)
--- NOTE | 2017-07-01 17:57 | PRG ---
DATE OF SERVICE: 07/01/2017 SERVICE: Pulmonary Medicine. INTERVAL HISTORY: The patient is doing really well from a respiratory standpoint. Her cough seems t o be a little bit better today. She does not have as much dyspnea, though she continues to have ongo ing chest discomfort. It is not particularly worse with exertion. Her blood pressure has been eleva jenna. She had complains of a little lightheadedness, and some dizziness. PHYSICAL EXAMINATION: VITAL SIGNS: Afebrile, pulse 67, blood pressure 146/70, respirations 14, saturation 95% on room air. GENERAL: Patient is awake, alert, no apparent distress. LUNGS: Improved air entry. There is still polyphonic wheezing present. I have listened carefully, I do not appreciate any crackles in dependent region. No rhonchi. HEART: Normal rate, regular. ABDOMEN: Soft, nontender, nondistended. Bowel sounds are positive. MUSCULOSKELETAL: No cyanosis or clubbing. There is no pitting in the bilateral lower extremities. NEUROLOGIC: Grossly nonfocal. ASSESSMENT: 1. Chronic obstructive pulmonary disease with acute exacerbation. 2. Influenza B. 3. Chest pain. PLAN: We will continue supportive care including antibiotics, nebulized medications, steroids as wel l as Tamiflu. PLAN: Repeat laboratories tomorrow including CBC, basic metabolic profile, and troponin. If the tro ponin is elevated in the morning, additional investigation may be warranted. That being said, the in fluenza virus is going to take anywhere between 5 and 10 days to run its course. We should be klever goncalves close to the point of her turning the corner.
[2017-07-01] MEDS: Latanoprost 0.005% Ophth Soln 2.5 ml Bottle EA EYE SCH (21:30)
[2017-07-01] MEDS: hydrALAZINE 25 MG TAB PO SCH (21:32)
[2017-07-01] MEDS: Rosuvastatin 5 MG TAB PO SCH (21:38)
[2017-07-01] MEDS: Senokot 8.6 MG TAB PO PRN (22:39)
[2017-07-02] MEDS: Brimonidine Tartrate 0.2% Ophth Soln 5 ml Bottle EA EYE SCH ×3 (05:45→20:11)
[2017-07-02] MEDS: Mometasone/Formoterol 120 PUFF INHALER INH SCH ×2 (07:48→20:00)
[2017-07-02] MEDS: Amoxicillin/Potassium Clav 875 MG TAB PO SCH ×2 (08:10→20:11)
[2017-07-02] MEDS: guaiFENesin ER 600 MG TAB PO SCH ×2 (08:10→20:11)
[2017-07-02] MEDS: predniSONE 20 MG TAB PO SCH (08:10)
[2017-07-02] MEDS: Hydrochlorothiazide 25 MG TAB PO SCH (08:11)
[2017-07-02] MEDS: Oseltamivir 75 MG CAP PO SCH ×2 (08:11→20:11)
[2017-07-02] MEDS: Enoxaparin Sodium 40 MG/0.4 ML SYRINGE SC SCH (08:12)
[2017-07-02] MEDS: Fluticasone Propionate Nasal Spray 16 gm Bottle NASAL SCH (08:13)
[2017-07-02] MEDS: Acetaminophen 325 MG TAB PO PRN ×2 (08:23→13:48)
[2017-07-02] MEDS: hydrALAZINE 25 MG TAB PO SCH ×2 (08:23→20:11)
[2017-07-02 10:03] LABS: #Basophils 0.1 thou/uL (0.0-0.2); #Lymphocytes 1.3 thou/uL (1.20-3.40); #Monocytes 0.5 thou/uL (0.11-0.59); #Neutrophils 3.2 thou/uL (1.40-6.50); %Basophils 1.5 % (0.0-1.0); %Eosinophils 0.1 % (0.0-10.0); %Lymphocytes 26.3 % (21.0-51.0); %Monocytes 9.3 % (0.0-10.0); %Neutrophils 62.8 % (42.0-75.0); Hemoglobin 13.1 g/dL (12.0-16.0); Mean Corpuscular HGB CONC 31.3 g/dL (32.0-36.0); Mean Corpuscular Hemoglobin 30.5 pg (27.0-31.0); Mean Corpuscular Volume 97.3 fl (81.0-99.0); Mean Platelet Volume 7.8 fL (7.4-10.4); Platelet Count 171 thou/uL (130-400); RBC Distribution Width 13.1 % (11.5-14.5); Red Blood Cell (RBC) Count 4.29 mill/uL (4.20-5.40); White Blood Cell (WBC) Count 5.1 thou/uL (4.8-10.8)
[2017-07-02 10:23] LABS: Anion Gap 7 mmol/L (10-20); BUN (Urea Nitrogen) 21 mg/dL (9.8-20.1); Calc. Creatinine Clearance 91 mL/min (70-130); Calcium 9.1 mg/dL (7.8-10.44); Carbon Dioxide 34 mmol/L (23-31); Chloride 103 mmol/L (98-107); Estimated GFR-MDRD 85; Glucose 174 mg/dL (80-115); Sodium 141 mmol/L (136-145)
[2017-07-02 10:31] LABS: CKMB 0.7 ng/mL (0-6.6); Troponin I 0.026 ng/mL (< 0.028)
[2017-07-02] MEDS ORDERED: Potassium Chloride 20 MEQ TAB PO SCH ×2 (11:45→16:00)
[2017-07-02] MEDS ORDERED: Magnesium Sulfate 2 GM in Sodium Chloride 0.9% 100 ML IVPB SCH (13:00)
[2017-07-02] MEDS ORDERED: Magnesium 2 GM/NS 0.9% 100 ML 2 GM in Premix Bag 1 BAG IVPB SCH (13:00)
--- NOTE | 2017-07-02 13:06 | PRG ---
DATE OF SERVICE: 07/02/2017 SERVICE: Pulmonary Medicine. INTERVAL HISTORY: The patient is doing really well from a respiratory standpoint. She is breathing comfortably. She has no specific complaints of nausea, vomiting, or the same chest discomfort. Some of her symptoms are easing up a little bit, but she has been slow to improve since she has been in the hospital. She continues to have persistent headache. I delved into this dizziness sensation that she is having. It is not a lightheadedness, or feeling of feeling of passing out. It is more of vertiginous-type symptoms. It is associated with the ringing in the left ear. PHYSICAL EXAMINATION: VITAL SIGNS: Afebrile, pulse 57, blood pressure 137/80, respirations 14, saturation 95% on room air. GENERAL: Patient is awake, alert, no apparent distress. LUNGS: Decent air entry. It is slightly improved compared to yesterday. There is still some wheezing. I hear some minimal crackles present in bibasilar regions. Rhonchi cleared with cough. HEART: Normal rate, regular. ABDOMEN: Soft, nontender, nondistended. Bowel sounds are positive. MUSCULOSKELETAL: No cyanosis or clubbing. There is trace 1+ pitting in the bilateral lower extremities. NEUROLOGIC: Grossly nonfocal. LABORATORY DATA: CBC is grossly unremarkable. Troponin is down trending at 0.026, CK-MB is normal. Bicarbonate 34, potassium 3.0, creatinine is stable at 0.82. Influenza A is positive. ASSESSMENT: 1. Chronic obstructive pulmonary disease with acute exacerbation. 2. Influenza. 3. Vertigo. 4. Obstructive sleep apnea, suspected. DISCUSSION: We will continue supportive care including antibiotics, steroids and nebulized medications. I would replace the patient's potassium. We will empirically give her a dose of magnesium. No laboratories will be performed tomorrow morning. Pulmonary Critical Care will continue to follow while she remains in this location. [facility]
[2017-07-02] MEDS: Bisacodyl 5 MG TAB PO PRN (13:48)
--- NOTE | 2017-07-02 15:04 | PDOC.PN ---
- Subjective Encounter Start Date: 07/02/17 Encounter Start Time: 15:02 Subjective: c/o dizziness and weakness and cough - Objective MAR Reviewed: Yes Vital Signs & Weight: Vital Signs (12 hours) Temp Pulse Resp BP BP Pulse Ox 07/02/17 12:36 80 14 07/02/17 11:26 98.9 F 57 L 14 137/80 95 07/02/17 08:23 56 L 146/78 H 07/02/17 08:11 146/78 H 07/02/17 07:55 98.6 F 56 L 14 96 07/02/17 07:46 67 15 97 07/02/17 07:28 98.6 F 52 L 14 146/78 H 96 07/02/17 05:05 98.7 F 52 L 17 160/80 H 97 I&O: 07/01/17 07/02/17 07/03/17 06:59 06:59 06:59 Intake Total 760 500 Balance 760 500 Result Diagrams: 07/02/17 09:54 07/02/17 09:54 Phys Exam - Physical Examination Constitutional: NAD coughing HEENT: PERRLA, moist MMs, sclera anicteric, oral pharynx no lesions Neck: no JVD Respiratory: no rales, no rhonchi, wheezing present Cardiovascular: RRR, no significant murmur Gastrointestinal: soft, non-tender, no distention, positive bowel sounds Musculoskeletal: no edema, pulses present Neurological: non-focal, normal sensation, moves all 4 limbs Psychiatric: normal affect, A&O x 3 Skin: no rash Dx/Plan (1) Sinus bradycardia Code(s): R00.1 - BRADYCARDIA, UNSPECIFIED Status: Acute Comment: Likley due to CCB.improved (2) Influenza Code(s): J11.1 - FLU DUE TO UNIDENTIFIED INFLUENZA VIRUS W OTH RESP MANIFEST Status: Acute (3) Acute bronchitis with COPD Code(s): J44.0 - CHRONIC OBSTRUCTIVE PULMON DISEASE W ACUTE LOWER RESP INFCT; J20.9 - ACUTE BRONCHITIS, UNSPECIFIED Status: Acute (4) HTN (hypertension) Code(s): I10 - ESSENTIAL (PRIMARY) HYPERTENSION Status: Acute (5) HLD (hyperlipidemia) Code(s): E78.5 - HYPERLIPIDEMIA, UNSPECIFIED Status: Acute (6) Acute hypoxemic respiratory failure Code(s): J96.01 - ACUTE RESPIRATORY FAILURE WITH HYPOXIA Status: Resolved - Plan continue antibiotics, DVT proph w/SCDs cont nebs,po steroids,empiric ABx.pt reports minimal impovement -: ECHO pending. -: CCB stopped.BP Ok on Hydralazine & HCTZ ,increased dose.adjust prn -: will likely DC home in am if OK w PCCM * . Review of Systems - Review of Systems Constitutional: negative: fever, chills, sweats, weakness, malaise, other Respiratory: negative: Cough, Dry, Shortness of Breath, Hemoptysis, SOB with Excertion, Pleuritic Pain, Sputum, Wheezing Cardiovascular: negative: chest pain, palpitations, orthopnea, paroxysmal nocturnal dyspnea, edema, light headedness, other Gastrointestinal: negative: Nausea, Vomiting, Abdominal Pain, Diarrhea, Constipation, Melena, Hematochezia, Other Genitourinary: negative: Dysuria, Frequency, Incontinence, Hematuria, Retention , Other Musculoskeletal: negative: Neck Pain, Shoulder Pain, Arm Pain, Back Pain, Hand Pain, Leg Pain, Foot Pain, Other Skin: negative: Rash, Lesions, Rodney, Bruising, Other Neurological: negative: Weakness, Numbness, Incoordination, Change in Speech, Confusion, Seizures, Other - Medications/Allergies Allergies/Adverse Reactions: Allergies Allergy/AdvReac Type Severity Reaction Status Date / Time No Known Allergies Allergy Verified 02/14/13 16:35 Medications: Current Medications Acetaminophen (Tylenol) 650 mg PO Q4H PRN PRN Reason: Headache/Fever or Pain Last Admin: 07/02/17 13:48 Dose: 650 mg Al Hydroxide/Mg Hydroxide (Maalox) 30 ml PO Q6H PRN PRN Reason: Heartburn or Indigestion Albuterol/Ipratropium (Duoneb) 3 ml NEB Q4H PRN PRN Reason: SOB &/or Wheezing Albuterol/Ipratropium (Duoneb) 3 ml NEB [id number] [facility] Last Admin: 07/02/17 12:36 Dose: 3 ml Amoxicillin/Clavulanate Potassium (Augmentin) 875 mg PO BID [facility] Last Admin: 07/02/17 08:10 Dose: 875 mg Aspirin (Aspirin Chewable) 81 mg PO DAILY [facility] Last Admin: 07/02/17 08:12 Dose: 81 mg Bisacodyl (Dulcolax) 10 mg PO DAILYPRN PRN PRN Reason: Constipation Last Admin: 07/02/17 13:48 Dose: 10 mg Brimonidine Tartrate (Alphagan 0.2% Oph Soln) 1 drop EA EYE Q8HR [facility] Last Admin: 07/02/17 13:24 Dose: 1 drop Calcium Carbonate (Tums) 1,000 mg PO Q4H PRN PRN Reason: Heartburn or Indigestion Enalapril Maleate (Vasotec) 40 mg PO DAILY [facility] Last Admin: 07/02/17 08:11 Dose: 40 mg Enoxaparin Sodium (Lovenox) 40 mg SC 0900 [facility] Last Admin: 07/02/17 08:12 Dose: 40 mg Fluticasone Propionate (Flonase Nasal [place]) 1 gm NASAL DAILY [facility] Last Admin: 07/02/17 08:13 Dose: 1 spr Guaifenesin (Robitussin Sf) 200 mg PO Q4H PRN PRN Reason: Cough Guaifenesin (Mucinex) 1,200 mg PO Q12HR [facility] Last Admin: 07/02/17 08:10 Dose: 1,200 mg Hydralazine HCl (Apresoline) 10 mg SLOW IVP Q4H PRN PRN Reason: Systolic BP > 180 Last Admin: 07/01/17 09:18 Dose: 10 mg Hydralazine HCl (Apresoline) 25 mg PO BID [facility] Last Admin: 07/02/17 08:23 Dose: 25 mg Hydrochlorothiazide (Hydrochlorothiazide) 25 mg PO DAILY [facility] Last Admin: 07/02/17 08:11 Dose: 25 mg Latanoprost (Xalatan 0.005% Oph Soln) 1 drop EA EYE HS [facility] Last Admin: 07/01/17 21:30 Dose: 1 drop Loratadine (Claritin) 10 mg PO DAILYPRN PRN PRN Reason: Sinus Symptoms Last Admin: 07/01/17 12:32 Dose: 10 mg Mometasone Furoate/Formoterol Fumar (Dulera 100 Mcg/5 Mcg Inhaler) 2 puff INH BID-RT [facility] Last Admin: 07/02/17 07:48 Dose: 2 puff Nitroglycerin (Nitrostat) 0.4 mg SL Q5MIN PRN PRN Reason: Chest Pain Ondansetron HCl (Zofran) 4 mg IVP Q6H PRN PRN Reason: Nausea/Vomiting Oseltamivir Phosphate (Tamiflu) 75 mg PO BID [facility] Stop: 07/03/17 21:01 Last Admin: 07/02/17 08:11 Dose: 75 mg Potassium Chloride (K-Dur) 40 meq PO ONE [facility] Stop: 07/02/17 18:00 Prednisone (Prednisone) 40 mg PO QA-WM [facility] Stop: 07/04/17 08:01 Last Admin: 07/02/17 08:10 Dose: 40 mg Rosuvastatin Calcium (Crestor) 5 mg PO HS [facility] Last Admin: 07/01/17 21:38 Dose: 5 mg Senna (Senokot) 2 tab PO HSPRN PRN PRN Reason: Constipation Last Admin: 07/01/17 22:39 Dose: 2 tab Sodium Chloride (Flush - Normal Saline) 10 ml IVF Q12HR [facility] Last Admin: 07/02/17 08:24 Dose: 10 ml Sodium Chloride (Flush - Normal Saline) 10 ml IVF PRN PRN PRN Reason: Saline Flush Tramadol HCl (Ultram) 50 mg PO Q4H PRN PRN Reason: Moderate Pain (4-6)
[2017-07-02] MEDS: Senokot 8.6 MG TAB PO PRN (20:11)
[2017-07-02] MEDS: Latanoprost 0.005% Ophth Soln 2.5 ml Bottle EA EYE SCH (20:11)
[2017-07-02] MEDS: Rosuvastatin 5 MG TAB PO SCH (20:11)
[2017-07-03] MEDS: Acetaminophen 325 MG TAB PO PRN ×4 (05:45→20:34)
[2017-07-03] MEDS: Brimonidine Tartrate 0.2% Ophth Soln 5 ml Bottle EA EYE SCH ×3 (05:47→20:40)
[2017-07-03] MEDS: Mometasone/Formoterol 120 PUFF INHALER INH SCH ×2 (07:36→19:03)
[2017-07-03] MEDS: Enoxaparin Sodium 40 MG/0.4 ML SYRINGE SC SCH (08:02)
[2017-07-03] MEDS: hydrALAZINE 25 MG TAB PO SCH ×3 (08:02→20:23)
[2017-07-03] MEDS: Oseltamivir 75 MG CAP PO SCH ×2 (08:03→20:24)
[2017-07-03] MEDS: predniSONE 20 MG TAB PO SCH (08:03)
[2017-07-03] MEDS: Amoxicillin/Potassium Clav 875 MG TAB PO SCH ×2 (08:04→20:23)
[2017-07-03] MEDS: guaiFENesin ER 600 MG TAB PO SCH ×2 (08:04→20:40)
[2017-07-03] MEDS: Hydrochlorothiazide 25 MG TAB PO SCH (08:04)
[2017-07-03] MEDS: Fluticasone Propionate Nasal Spray 16 gm Bottle NASAL SCH (08:13)
[2017-07-03] MEDS: Bisacodyl 5 MG TAB PO PRN (10:12)
--- NOTE | 2017-07-03 13:40 | PRG ---
DATE OF SERVICE: 07/03/2017 SERVICE: Pulmonary Medicine. INTERVAL HISTORY: The patient is finally turning the corner ever so slightly. This is the first day that she feels that the cough has improved a little bit. It is still present. Also the chest heavi ness is lightening up a little bit. She continues to have vertiginous symptoms and the ringing in th e ear. Otherwise, there has been no interval change to her condition. PHYSICAL EXAMINATION: VITAL SIGNS: Afebrile, pulse 51, blood pressure 121/71, respirations 16, saturation 94% on room air. GENERAL: The patient is awake and alert, no apparent distress. LUNGS: Improved air entry. There is a prolonged expiratory phase and wheezing. That being said, th e air movement is much improved. Rhonchi present, but clear with cough today. No crackles are appre ciated. HEART: Normal rate and regular. ABDOMEN: Soft, nontender, and nondistended. Bowel sounds are positive. MUSCULOSKELETAL: No cyanosis or clubbing. There is no pitting in the bilateral lower extremities. NEUROLOGIC: Grossly nonfocal. ASSESSMENT: 1. Chronic obstructive pulmonary disease with acute exacerbation. 2. Influenza. 3. Vertigo and tinnitus. DISCUSSION AND PLAN: From my perspective, the patient is moving in the right direction, albeit slowl y. We can continue supportive care including antibiotics, nebulized medications, and steroids. If s he continues to do well by tomorrow morning, she can be considered for discharge out of the hospital.
--- NOTE | 2017-07-03 14:56 | PDOC.PN ---
- Subjective Encounter Start Date: 07/03/17 Encounter Start Time: 14:54 Subjective: feels better but not by much.no more dizzy -: coughing but less - Objective MAR Reviewed: Yes Vital Signs & Weight: Vital Signs (12 hours) Temp Pulse Resp BP BP Pulse Ox 07/03/17 11:22 98.7 F 51 L 16 121/71 94 L 07/03/17 08:03 144/63 H 07/03/17 08:02 50 L 144/63 H 07/03/17 08:00 98.8 F 50 L 14 95 07/03/17 07:35 64 16 96 07/03/17 07:22 98.8 F 50 L 14 144/63 H 95 07/03/17 05:12 98.5 F 55 L 16 158/74 H 95 I&O: 07/02/17 07/03/17 07/04/17 06:59 06:59 06:59 Intake Total 500 1910 Balance 500 1910 Result Diagrams: 07/02/17 09:54 07/02/17 09:54 Phys Exam - Physical Examination Constitutional: NAD HEENT: PERRLA, moist MMs, sclera anicteric, oral pharynx no lesions Neck: no nodes, no JVD, supple, full ROM Respiratory: no wheezing, no rales, no rhonchi, clear to auscultation bilateral Cardiovascular: RRR, no significant murmur Gastrointestinal: soft, non-tender, no distention, positive bowel sounds Musculoskeletal: no edema, pulses present Neurological: non-focal, normal sensation, moves all 4 limbs Psychiatric: normal affect, A&O x 3 Skin: no rash Dx/Plan (1) Sinus bradycardia Code(s): R00.1 - BRADYCARDIA, UNSPECIFIED Status: Acute Comment: Likley due to CCB.improved (2) Influenza Code(s): J11.1 - FLU DUE TO UNIDENTIFIED INFLUENZA VIRUS W OTH RESP MANIFEST Status: Acute (3) Acute bronchitis with COPD Code(s): J44.0 - CHRONIC OBSTRUCTIVE PULMON DISEASE W ACUTE LOWER RESP INFCT; J20.9 - ACUTE BRONCHITIS, UNSPECIFIED Status: Acute (4) HTN (hypertension) Code(s): I10 - ESSENTIAL (PRIMARY) HYPERTENSION Status: Acute (5) HLD (hyperlipidemia) Code(s): E78.5 - HYPERLIPIDEMIA, UNSPECIFIED Status: Acute (6) Acute hypoxemic respiratory failure Code(s): J96.01 - ACUTE RESPIRATORY FAILURE WITH HYPOXIA Status: Resolved - Plan continue antibiotics, respiratory therapy, incentive spirometry, out of bed/ ambulate, DVT proph w/SCDs ECHO pending for bradycardia.HR better w stopping CCB -: increase Hydralzine for BP.HCTZ increased yesterday -: cont home meds as below.cont nebs,O2,steroids,PO ABx -: DC tomorrow if ECHO WNL. -: PCCM following.appreciate input * . Review of Systems - Review of Systems Constitutional: weakness, malaise. negative: fever, chills, sweats, other Respiratory: Cough, SOB with Excertion. negative: Dry, Shortness of Breath, Hemoptysis, Pleuritic Pain, Sputum, Wheezing Cardiovascular: negative: chest pain, palpitations, orthopnea, paroxysmal nocturnal dyspnea, edema, light headedness, other Gastrointestinal: negative: Nausea, Vomiting, Abdominal Pain, Diarrhea, Constipation, Melena, Hematochezia, Other Genitourinary: negative: Dysuria, Frequency, Incontinence, Hematuria, Retention , Other Musculoskeletal: negative: Neck Pain, Shoulder Pain, Arm Pain, Back Pain, Hand Pain, Leg Pain, Foot Pain, Other Neurological: negative: Weakness, Numbness, Incoordination, Change in Speech, Confusion, Seizures, Other - Medications/Allergies Allergies/Adverse Reactions: Allergies Allergy/AdvReac Type Severity Reaction Status Date / Time No Known Allergies Allergy Verified 02/14/13 16:35 Medications: Current Medications Acetaminophen (Tylenol) 650 mg PO Q4H PRN PRN Reason: Headache/Fever or Pain Last Admin: 07/03/17 10:12 Dose: 650 mg Al Hydroxide/Mg Hydroxide (Maalox) 30 ml PO Q6H PRN PRN Reason: Heartburn or Indigestion Albuterol/Ipratropium (Duoneb) 3 ml NEB Q4H PRN PRN Reason: SOB &/or Wheezing Albuterol/Ipratropium (Duoneb) 3 ml NEB [id number] [facility] Last Admin: 07/03/17 14:27 Dose: Not Given Amoxicillin/Clavulanate Potassium (Augmentin) 875 mg PO BID [facility] Last Admin: 07/03/17 08:04 Dose: 875 mg Aspirin (Aspirin Chewable) 81 mg PO DAILY [facility] Last Admin: 07/03/17 08:04 Dose: 81 mg Bisacodyl (Dulcolax) 10 mg PO DAILYPRN PRN PRN Reason: Constipation Last Admin: 07/03/17 10:12 Dose: 10 mg Brimonidine Tartrate (Alphagan 0.2% Ophth Soln) 1 drop EA EYE Q8HR [facility] Last Admin: 07/03/17 05:47 Dose: 1 drop Calcium Carbonate (Tums) 1,000 mg PO Q4H PRN PRN Reason: Heartburn or Indigestion Enalapril Maleate (Vasotec) 40 mg PO DAILY [facility] Last Admin: 07/03/17 08:03 Dose: 40 mg Enoxaparin Sodium (Lovenox) 40 mg SC 0900 [facility] Last Admin: 07/03/17 08:02 Dose: 40 mg Fluticasone Propionate (Flonase Nasal [place]) 1 gm NASAL DAILY [facility] Last Admin: 07/03/17 08:13 Dose: 1 spr Guaifenesin (Robitussin Sf) 200 mg PO Q4H PRN PRN Reason: Cough Guaifenesin (Mucinex) 1,200 mg PO Q12HR [facility] Last Admin: 07/03/17 08:04 Dose: 1,200 mg Hydralazine HCl (Apresoline) 10 mg SLOW IVP Q4H PRN PRN Reason: Systolic BP > 180 Last Admin: 07/01/17 09:18 Dose: 10 mg Hydralazine HCl (Apresoline) 25 mg PO TID [facility] Hydrochlorothiazide (Hydrochlorothiazide) 25 mg PO DAILY [facility] Last Admin: 07/03/17 08:04 Dose: 25 mg Latanoprost (Xalatan 0.005% Ophth Soln) 1 drop EA EYE HS [facility] Last Admin: 07/02/17 20:11 Dose: 1 drop Loratadine (Claritin) 10 mg PO DAILYPRN PRN PRN Reason: Sinus Symptoms Last Admin: 07/01/17 12:32 Dose: 10 mg Mometasone Furoate/Formoterol Fumar (Dulera 100 Mcg/5 Mcg Inhaler) 2 puff INH BID-RT [facility] Last Admin: 07/03/17 07:36 Dose: 2 puff Nitroglycerin (Nitrostat) 0.4 mg SL Q5MIN PRN PRN Reason: Chest Pain Ondansetron HCl (Zofran) 4 mg IVP Q6H PRN PRN Reason: Nausea/Vomiting Oseltamivir Phosphate (Tamiflu) 75 mg PO BID [facility] Stop: 07/03/17 21:01 Last Admin: 07/03/17 08:03 Dose: 75 mg Prednisone (Prednisone) 40 mg PO QAM-WM [facility] Stop: 07/04/17 08:01 Last Admin: 07/03/17 08:03 Dose: 40 mg Rosuvastatin Calcium (Crestor) 5 mg PO HS [facility] Last Admin: 07/02/17 20:11 Dose: 5 mg Senna (Senokot) 2 tab PO HSPRN PRN PRN Reason: Constipation Last Admin: 07/02/17 20:11 Dose: 2 tab Sodium Chloride (Flush - Normal Saline) 10 ml IVF Q12HR [facility] Last Admin: 07/03/17 08:03 Dose: 10 ml Sodium Chloride (Flush - Normal Saline) 10 ml IVF PRN PRN PRN Reason: Saline Flush Tramadol HCl (Ultram) 50 mg PO Q4H PRN PRN Reason: Moderate Pain (4-6)
[2017-07-03] MEDS: Rosuvastatin 5 MG TAB PO SCH (20:24)
[2017-07-03] MEDS: Senokot 8.6 MG TAB PO PRN (20:25)
[2017-07-03] MEDS: Latanoprost 0.005% Ophth Soln 2.5 ml Bottle EA EYE SCH (20:40)
[2017-07-04 05:27] LABS: #Lymphocytes 1.6 thou/uL (1.20-3.40); #Monocytes 0.5 thou/uL (0.11-0.59); #Neutrophils 3.4 thou/uL (1.40-6.50); %Basophils 0.8 % (0.0-1.0); %Eosinophils 0.6 % (0.0-10.0); %Lymphocytes 28.7 % (21.0-51.0); %Monocytes 9.3 % (0.0-10.0); %Neutrophils 60.6 % (42.0-75.0); Hemoglobin 12.4 g/dL (12.0-16.0); Mean Corpuscular HGB CONC 31.5 g/dL (32.0-36.0); Mean Corpuscular Hemoglobin 30.6 pg (27.0-31.0); Mean Platelet Volume 7.7 fL (7.4-10.4); Platelet Count 181 thou/uL (130-400); RBC Distribution Width 13.1 % (11.5-14.5); Red Blood Cell (RBC) Count 4.04 mill/uL (4.20-5.40); White Blood Cell (WBC) Count 5.7 thou/uL (4.8-10.8)
[2017-07-04 05:40] LABS: Anion Gap 12 mmol/L (10-20); BUN (Urea Nitrogen) 20 mg/dL (9.8-20.1); Calc. Creatinine Clearance 100 mL/min (70-130); Calcium 9.1 mg/dL (7.8-10.44); Carbon Dioxide 32 mmol/L (23-31); Chloride 101 mmol/L (98-107); Estimated GFR-MDRD Greater than 90; Glucose 103 mg/dL (80-115); Potassium 3.9 mmol/L (3.5-5.1); Sodium 141 mmol/L (136-145)
[2017-07-04] MEDS: Brimonidine Tartrate 0.2% Ophth Soln 5 ml Bottle EA EYE SCH ×2 (06:47→16:06)
[2017-07-04] MEDS: Mometasone/Formoterol 120 PUFF INHALER INH SCH (06:51)
[2017-07-04] MEDS: Bisacodyl 5 MG TAB PO PRN (08:50)
[2017-07-04] MEDS: Amoxicillin/Potassium Clav 875 MG TAB PO SCH (08:50)
[2017-07-04] MEDS: Acetaminophen 325 MG TAB PO PRN ×2 (08:50→17:55)
[2017-07-04] MEDS: Hydrochlorothiazide 25 MG TAB PO SCH (08:50)
[2017-07-04] MEDS: guaiFENesin ER 600 MG TAB PO SCH (08:51)
[2017-07-04] MEDS: hydrALAZINE 25 MG TAB PO SCH ×2 (08:51→15:31)
[2017-07-04] MEDS: predniSONE 20 MG TAB PO SCH (08:52)
[2017-07-04] MEDS: Fluticasone Propionate Nasal Spray 16 gm Bottle NASAL SCH (08:52)
[2017-07-04] MEDS: Enoxaparin Sodium 40 MG/0.4 ML SYRINGE SC SCH (08:52)
[2017-07-04 11:48] VITALS: BP 128/72; TEMP 98.5
--- NOTE | 2017-07-04 13:46 | PRG ---
DATE OF SERVICE: 07/04/2017 SERVICE: Pulmonary Medicine. INTERVAL HISTORY: The patient is doing fine from a cardiovascular and respiratory standpoint. She d enies any current fevers, chills, nausea, vomiting or chest discomfort. She does have a little dyspn ea with exertion. Her wheezing is much improved. She continues to have a cough, although it is not bring productive anymore and it does not feel that she has anything to clear any longer. She has bee n able to get around the room without significant difficulties. She continues to have a little tinni tus and vertiginous type symptoms. They are stable and have not progressed. PHYSICAL EXAMINATION: VITAL SIGNS: Afebrile, pulse 60, blood pressure 128/72, respirations 18, saturation 96% on room air. GENERAL: Patient is awake, alert, no apparent distress. LUNGS: Decent air entry. There is a slightly prolonged expiratory phase. I hear polyphonic wheezin g, but no longer rhonchi. No crackles. HEART: Normal rate, regular. ABDOMEN: Soft, nontender, and nondistended. Bowel sounds are positive. MUSCULOSKELETAL: No cyanosis or clubbing. There is no pitting in the bilateral lower extremities. NEUROLOGIC: Grossly nonfocal. LABORATORY DATA: WBC 5.7, hemoglobin 12.4, and platelets 181,000. Basic metabolic profile is comple tely unremarkable. Troponin 0.026, which was down trending since presentation. ASSESSMENT: 1. Chronic obstructive pulmonary disease with acute exacerbation. 2. Influenza. 3. Vertigo with tinnitus. DISCUSSION AND PLAN: I told the patient that sometimes vertigo and tinnitus can be associated with v iral illnesses. If this persists, she may need additional imaging in the outpatient setting. Marlon agustin, her neurologic exam is nonfocal. She will require a course of steroids for 14 days. She does n ot require tapering as this can be abruptly discontinued at that time. She has completed her Tamiflu , an antibiotic course and these will be discontinued today. She has a home nebulizer. She does not have the medications that go in them and it would be reasonable for her to start her home medication s backup on discharge and take DuoNebs on an as needed basis. Pulmonary will continue to follow if s he remains inhouse, but hopefully she will be considered for transition to home today.
--- NOTE | 2017-07-04 20:28 | DIS ---
DATE OF ADMISSION: 06/28/2017 DATE OF DISCHARGE: 07/04/2017 DISCHARGE DIAGNOSES: 1. Acute hypoxic respiratory failure secondary to chronic obstructive pulmonary disease exacerbation , improved. 2. Influenza B. 3. Sinus bradycardia, stable. 4. Vertigo. CONSULTATIONS: Dr. Weinberg with Pulmonology Service. PERTINENT LABORATORY AND X-RAY FINDINGS: Potassium ranged between 3.0 to 3.9, troponin I ranged betw een 0.026 to 0.042. BNP 67. CBC showed white blood cell count ranging between 2.9 to 9.0. Influenz a B antigen positive on 06/28/2017. Portable chest x-ray dated 06/28/2017, showed mild stranding in the upper lung zones. HOSPITAL COURSE: The patient was admitted to the medical floor after presenting with shortness of br eath, fever, and myalgias. The patient was noted with influenza B positive antigen after initially p resenting in the emergency room. The patient was placed on Tamiflu 75 mg b.i.d. as well as given Dec adron. The patient continued on oxygen supplementation as well as bronchodilator therapy and IV Solu -Medrol. The patient was followed by the Pulmonology Service and monitored throughout the hospital c [facility]. The patient was slow to clinically improve; however, completed a 5-day course of Tamiflu with persistent cough and wheezing. The patient received aggressive bronchodilator therapy as well as co ntinuation of Augmentin 875 mg b.i.d. throughout the hospital course. Overall, the patient did remai n clinically stable, tolerating room air with O2 saturations greater than 90%. The patient is ambula tory without assistance or difficulty and tolerating regular oral intake. The patient overall clinic ally stable and ready for discharge, 07/04/2017. DISCHARGE MEDICATIONS: 1. Enteric coated aspirin 81 mg 1 tab p.o. daily. 2. Lumigan ophthalmic solution 0.01% 1 drop each eye at bedtime. 3. Alphagan 0.2% ophthalmic solution 1 drop to each eye q.8 hours. 4. Diltiazem XT 120 mg p.o. daily. 5. Enalapril 40 mg 1 tab p.o. daily. 6. Flonase nasal spray 2 sprays in each naris daily. 7. Mucinex ER 1200 mg p.o. b.i.d. 8. Hydrochlorothiazide 12.5 mg p.o. daily. 9. DuoNeb 3 mL nebulized q.6 hours p.r.n. 10. Latanoprost 0.05% ophthalmic solution to each eye at bedtime. 11. Mobic 15 mg p.o. daily. 12. Dulera 100 mcg/5 mcg 2 puffs inhaled b.i.d. 13. Singulair 10 mg one tab p.o. daily. 14. Prednisone 10 mg 2 tabs p.o. b.i.d. x4 days, followed by 3 tabs p.o. daily x4 days, followed by 2 tabs p.o. daily x4 days. 15. Crestor 10 mg 1 tab p.o. daily. FOLLOWUP: The patient will follow up with her primary care provider, Dr. Kelly Almeida within 7 days of discharge. CONDITION ON DISCHARGE: Stable. ACTIVITY: Ad shukri. DIET: Heart healthy. CODE STATUS: Full. DISPOSITION: Home, 07/04/2017. Total time preparing and coordinating discharge was 33 minutes.
== END 2017-07-04 18:19 | disposition home or self-care (01) | DRG 193 ==
LOC: ERS 14:51 → SURG B 18:04 → SURG A 07-04 11:45 → SURG B 07-04 11:49
PROVIDERS: ADMIT Internal Medicine; ATTEND Internal Medicine
DX: J10.1 Influenza due to other identified influenza virus with other respiratory manifestations (principal); J96.01 Acute respiratory failure with hypoxia; J44.0 Chronic obstructive pulmonary disease with (acute) lower respiratory infection; J44.1 Chronic obstructive pulmonary disease with (acute) exacerbation; R00.1 Bradycardia, unspecified; J20.9 Acute bronchitis, unspecified; I10 Essential (primary) hypertension; E78.5 Hyperlipidemia, unspecified; R42 Dizziness and giddiness; H93.12 Tinnitus, left ear; D72.819 Decreased white blood cell count, unspecified; G47.33 Obstructive sleep apnea (adult) (pediatric)
CPT/HCPCS: 36415; 71046; 80048; 80053; 82553; 82805; 83880; 84484; 85025; 93005; 93306; 94640; A4216; J0360; J1100; J1650; J2920; J3475; J7506; J7620

== ENCOUNTER 2017-12-01 09:37 | Outpatient (CLI) | payer MEDICARE, BC | END 2017-12-01 09:38 | disposition home or self-care (01) | LOC: BICMAMMO 09:37 | PROVIDERS: ATTEND Obstetrics & Gynecology | DX: Z12.31 Encounter for screening mammogram for malignant neoplasm of breast (principal); Z80.3 Family history of malignant neoplasm of breast | CPT/HCPCS: 77063; 77067 ==

== ENCOUNTER 2018-12-03 11:09 | Outpatient (CLI) | payer MEDICARE, BC ==
--- NOTE | 2018-12-03 11:46 | MMO ---
Bilateral MAMMO Bilat Screen [facility]. CLINICAL HISTORY: Patient is 68 years old and is seen for screening. The patient has the following family history of breast cancer: mother and sister. The patient has no personal history of cancer. VIEWS: The views performed were: bilateral craniocaudal with tomosynthesis and bilateral mediolateral oblique with tomosynthesis. FILMS COMPARED: The present examination has been compared to prior imaging studies performed at [facility] on 10/31/2014, 11/02/2015, 11/12/2016 and 12/01/2017. MAMMOGRAM FINDINGS: There are scattered fibroglandular densities. There are no suspicious masses, suspicious calcifications, or new areas of architectural distortion. IMPRESSION: THERE IS NO MAMMOGRAPHIC EVIDENCE OF MALIGNANCY. A ROUTINE FOLLOW-UP MAMMOGRAM IN 1 YEAR IS RECOMMENDED. THE RESULTS OF THIS EXAM WERE SENT TO THE PATIENT. ACR BI-RADS Category 1 - Negative MAMMOGRAPHY NOTE: 1. A negative mammogram report should not delay a biopsy if a dominant of clinically suspicious mass is present. 2. Approximately 10% to 15% of breast cancers are not detected by mammography. 3. Adenosis and dense breasts may obscure an underlying neoplasm. Reported by: NORBERT GOODEN MD Electonically Signed: [id number]
== END 2018-12-03 11:10 | disposition home or self-care (01) ==
LOC: BICMAMMO 11:09
PROVIDERS: ATTEND Obstetrics & Gynecology
DX: Z12.31 Encounter for screening mammogram for malignant neoplasm of breast (principal); Z80.3 Family history of malignant neoplasm of breast
CPT/HCPCS: 77063; 77067

== ENCOUNTER 2018-12-08 07:31 | Outpatient (CLI) | payer MEDICARE, BC ==
--- NOTE | 2018-12-08 10:19 | CT ---
CT of abdomen and pelvis: 12/08/2018 COMPARISON: 12/31/2011 HISTORY: Generalized abdominal pain with bloating, diarrhea, and cramping TECHNIQUE: Axial CT imaging at 5 mm intervals through abdomen and pelvis with IV and oral contrast. C oronal reformatted imaging obtained. FINDINGS: The imaged lung bases are unremarkable. No free intraperitoneal air or fluid. Hepatic parenchyma is diffusely hypodense, suggesting steatosis. Gallbladder nonvisualized. Spleen, p ancreas, adrenal glands, and kidneys are unremarkable uterus appears surgically absent. No evidence for bowel inflammatory change or bowel obstruction. The appendix is visualized and is within normal limits. The vascular structures of the abdomen/pelvis appear patent. The no abdominal or pelvic lymphadenopat hy. There is multilevel lower lumbar spine facet hypertrophic change. There is no worrisome lytic or zoraida tic bone lesion. Bilateral degenerative changes are noted. IMPRESSION: Incidental findings as described above. No acute findings.
[2018-12-08] MEDS ORDERED: Iopamidol 370 76% 50 ML VIAL FS ONE (13:53)
[2018-12-08] MEDS ORDERED: Iopamidol 370 76% 100 ML VIAL ONE (13:53)
== END 2018-12-08 07:32 | disposition home or self-care (01) ==
LOC: CT 07:31
PROVIDERS: ATTEND Internal Medicine Gastroenterology
DX: R10.9 Unspecified abdominal pain (principal); Z85.07 Personal history of malignant neoplasm of pancreas; Z85.830 Personal history of malignant neoplasm of bone
CPT/HCPCS: 74177; Q9967

== ENCOUNTER 2019-12-08 11:32 | Outpatient (CLI) | payer MEDICARE, BC ==
--- NOTE | 2019-12-08 13:28 | MMO ---
Bilateral MAMMO Bilat Screen [facility]. CLINICAL HISTORY: Patient is 69 years old and is seen for screening. The patient has the following family history of breast cancer: mother and sister. The patient has no personal history of cancer. VIEWS: The views performed were: bilateral craniocaudal with tomosynthesis and bilateral mediolateral oblique with tomosynthesis. FILMS COMPARED: The present examination has been compared to prior imaging studies performed at [facility] on 11/02/2015, 11/12/2016, 12/01/2017 and 12/03/2018. This study has been interpreted with the assistance of computer-aided detection. MAMMOGRAM FINDINGS: There are scattered fibroglandular densities. There are no suspicious masses, suspicious calcifications, or new areas of architectural distortion. IMPRESSION: THERE IS NO MAMMOGRAPHIC EVIDENCE OF MALIGNANCY. A ROUTINE FOLLOW-UP MAMMOGRAM IN 1 YEAR IS RECOMMENDED. THE RESULTS OF THIS EXAM WERE SENT TO THE PATIENT. ACR BI-RADS Category 1 - Negative MAMMOGRAPHY NOTE: 1. A negative mammogram report should not delay a biopsy if a dominant of clinically suspicious mass is present. 2. Approximately 10% to 15% of breast cancers are not detected by mammography. 3. Adenosis and dense breasts may obscure an underlying neoplasm. Reported by: JOSE G BLACKWELL MD Electonically Signed: [id number]
--- NOTE | 2019-12-08 13:36 | BD ---
DEXA SCAN: DATE: 12/08/2019. PROVIDED CLINICAL HISTORY: Postmenopausal screening. FINDINGS: Lumbar Spine: BMD (g/cm2) L1 1.063 T-Score: 0.7 2.4 L2 1.127 T-Score: 1.2 3.1 L3 1.180 T-Score: 0.9 2.9 L4 1.081 T-Score: 0.2 2.3 L1-L4 1.121 T-Score: 0.7 2.7 Femoral Neck: 0.899 T-Score: 0.5 2.1 Total Femur: 1.099 T-Score: 1.3 2.7 Impression: Calculated bone mineral density meets WHO criteria for normal. POS: [facility]
== END 2019-12-08 11:33 | disposition home or self-care (01) ==
LOC: BICMAMMO 11:32
PROVIDERS: ATTEND Obstetrics & Gynecology
DX: Z12.31 Encounter for screening mammogram for malignant neoplasm of breast (principal); Z13.820 Encounter for screening for osteoporosis; Z80.3 Family history of malignant neoplasm of breast
CPT/HCPCS: 77063; 77067; 77080

== ENCOUNTER 2020-01-25 07:33 | Outpatient (CLI) | payer MEDICARE, BC ==
[2020-01-25] MEDS ORDERED: Iopamidol-370 76% 500 ML 1 ML ONE (13:10)
--- NOTE | 2020-01-25 13:17 | CT ---
EXAM: CT Abdomen W WO Con PROVIDED CLINICAL HISTORY: Steatosis of the liver. Family history of pancreatic cancer. COMPARISON: 12/08/2018 and 04/29/2007 FINDINGS: Minimal atelectasis versus scarring is present at the right lung base. Lung bases are otherwise clear The liver is enlarged in craniocaudal dimensions measuring 18.6 cm. This is unchanged compared to [place] or study in 2019. No focal hepatic lesion is identified. There is mention of hepatic steatosis on the prior examination, but the attenuation coefficient of the liver is similar to that of the spleen. Gallbladder is not visualized and likely surgically absent. The spleen, pancreas, bilateral adrenal glands, kidneys, and opacified bowel demonstrate a normal CT appearance. Abdominal aorta is normal in caliber without evidence of an aortic dissection. No free fluid, fluid collection, or lymphadenopathy is seen in the abdomen or pelvis. Degenerative changes seen in the spine. No suspicious lytic or sclerotic osseous lesions are seen. IMPRESSION: 1. Enlargement of liver in craniocaudal dimensions unchanged from prior study. 2. No acute findings in the abdomen.
== END 2020-01-25 07:34 | disposition home or self-care (01) ==
LOC: BICCT 07:33
PROVIDERS: ATTEND Internal Medicine Gastroenterology
DX: K76.0 Fatty (change of) liver, not elsewhere classified (principal); K59.00 Constipation, unspecified; R07.9 Chest pain, unspecified; R16.0 Hepatomegaly, not elsewhere classified; Z80.0 Family history of malignant neoplasm of digestive organs
CPT/HCPCS: 74170; 82565; Q9967

== ENCOUNTER 2020-06-21 09:35 | Outpatient (CLI) | payer MEDICARE, BC ==
--- NOTE | 2020-06-21 10:15 | RAD ---
EXAM: XR Cerv Sp Ap Lat STANDARD DATE: 06/21/2020 9:50 AM INDICATION: Cervicalgia COMPARISON: None. FINDING: There is mild multilevel spondylosis of the cervical spine. Spinal alignment is preserved. No acute fracture is evident. Lateral masses are symmetric. There is accentuated kyphosis of the visualized thoracic spine. IMPRESSION:Mild cervical spondylosis.
--- NOTE | 2020-06-21 10:16 | RAD ---
EXAM: XR Thoracic Spine 3 V STANDARD DATE: 06/21/2020 9:50 AM INDICATION: Back pain COMPARISON: None. FINDING: There is accentuated kyphosis of the thoracic spine due to multilevel prominent disc degene rative disease. No acute fracture subluxation is evident. Visualized lungs are clear. IMPRESSION:Moderate thoracic spondylosis with accentuated kyphosis of the upper to midthoracic spine.
--- NOTE | 2020-06-21 11:35 | RAD ---
LUMBAR SPINE 3 VIEWS: Date: 06/21/2020 HISTORY: Dorsalgia. Pain. COMPARISON: Reference made to CT abdomen/pelvis 12/08/2018. FINDINGS: No acute fracture or lumbar spine. No significant listhesis. Moderate facet arthrosis L3-4, L4-5, and L5-S1. Mild narrowing of interspinous space L2-L5. No SI joint widening. Moderate degenerative change of the right hip. No abnormal calcifications project over the renal shadows. Low grade dextroscoliosis lumbar spine. There is some mild L4-5 and L5-S1 degenerative disc space height loss. IMPRESSION: Mild spondylosis without fracture, malalignment, nor significant listhesis. POS: [facility]
== END 2020-06-21 09:36 | disposition home or self-care (01) ==
LOC: BICRAD 09:35
PROVIDERS: ATTEND Internal Medicine
DX: M54.2 Cervicalgia (principal); M54.9 Dorsalgia, unspecified; M47.816 Spondylosis without myelopathy or radiculopathy, lumbar region; M47.814 Spondylosis without myelopathy or radiculopathy, thoracic region; M40.294 Other kyphosis, thoracic region; M47.812 Spondylosis without myelopathy or radiculopathy, cervical region
CPT/HCPCS: 72040; 72072; 72100

== ENCOUNTER 2020-11-01 12:38 | Outpatient (CLI) | payer MEDICARE, BC | END 2020-11-01 12:39 | disposition home or self-care (01) | LOC: BICRAD 12:38 | PROVIDERS: ATTEND Internal Medicine | DX: I10 Essential (primary) hypertension (principal); R53.83 Other fatigue | CPT/HCPCS: 71046 ==

== ENCOUNTER 2022-03-28 10:29 | Outpatient (CLI) | payer MEDICARE | END 2022-03-28 10:30 | disposition home or self-care (01) | LOC: BICMAMMO 10:29 | PROVIDERS: ATTEND Obstetrics & Gynecology | DX: Z12.31 Encounter for screening mammogram for malignant neoplasm of breast (principal); Z80.3 Family history of malignant neoplasm of breast | CPT/HCPCS: 77063; 77067 ==

== ENCOUNTER 2022-04-08 10:42 | Outpatient (CLI) | payer MEDICARE | END 2022-04-08 10:43 | disposition home or self-care (01) | LOC: BICMAMMO 10:42 | PROVIDERS: ATTEND Obstetrics & Gynecology | DX: Z13.820 Encounter for screening for osteoporosis (principal) | CPT/HCPCS: 77080 ==

== ENCOUNTER 2023-07-10 13:03 | Outpatient (CLI) | payer MEDICARE, OTHER | END 2023-07-10 13:04 | disposition home or self-care (01) | LOC: BICMRI 13:03 | PROVIDERS: ATTEND Physician Assistant | DX: M48.02 Spinal stenosis, cervical region (principal); M47.812 Spondylosis without myelopathy or radiculopathy, cervical region | CPT/HCPCS: 72156; 82565 ==

== ENCOUNTER 2024-02-17 10:09 | Outpatient (CLI) | payer MEDICARE, OTHER | END 2024-02-17 10:10 | disposition home or self-care (01) | LOC: BICRAD 10:09 | PROVIDERS: ATTEND Internal Medicine | DX: I10 Essential (primary) hypertension (principal); E78.5 Hyperlipidemia, unspecified; R79.89 Other specified abnormal findings of blood chemistry; D72.819 Decreased white blood cell count, unspecified | CPT/HCPCS: 36415; 71046; 80053; 80061; 81001; 83036; 84439; 84443; 85025 ==

== ENCOUNTER 2024-03-19 12:02 | Outpatient (CLI) | payer MEDICARE, OTHER | END 2024-03-19 12:03 | disposition home or self-care (01) | LOC: BICMAMMO 12:02 | PROVIDERS: ATTEND Obstetrics & Gynecology | DX: Z12.31 Encounter for screening mammogram for malignant neoplasm of breast (principal); Z80.3 Family history of malignant neoplasm of breast | CPT/HCPCS: 77063; 77067 ==

== ENCOUNTER 2025-05-09 11:40 | Outpatient (CLI) | payer OTHER | END 2025-05-09 11:41 | disposition home or self-care (01) | LOC: BICMAMMO 11:40 | PROVIDERS: ATTEND Internal Medicine | DX: Z12.31 Encounter for screening mammogram for malignant neoplasm of breast (principal); Z78.0 Asymptomatic menopausal state; Z80.3 Family history of malignant neoplasm of breast | CPT/HCPCS: 77063; 77067; 77080 ==